=== PATIENT | male | born 1980 | race Native Hawaiian/Other Pacific Islander ===

== ENCOUNTER 2021-05-07 14:17 | Outpatient (CLI) | payer BC | END 2021-05-07 20:26 | disposition home or self-care (01) | LOC: RAD 14:17 | PROVIDERS: ATTEND Orthopaedic Surgery | DX: M25.551 Pain in right hip (principal) ==

== ENCOUNTER 2021-05-14 09:38 | Outpatient (CLI) | payer BC | END 2021-05-14 18:57 | disposition home or self-care (01) | LOC: MRI 09:38 | PROVIDERS: ATTEND Orthopaedic Surgery | DX: M25.551 Pain in right hip (principal) ==